=== PATIENT | female | born 1960 | race Caucasian/White ===

== ENCOUNTER → 2016-12-05 | Outpatient (CLI) | payer MEDICARE, OTHER ==
[~2016-12-05] MED LIST: ACETAMINOPHEN PO; ACTOS15 MG PO; ADVAIR 5001 DISK W/1 IH; ALBUTEROL; ALBUTEROL 0.5ML INH; ALBUTEROL MININEB NEB; ALBUTEROL17 GM; ALBUTEROL17 GM INH; ALDACTONE25 MG PO; ALENDRONATE SOD70 MG PO; AMBIEN PO; ANECREAM 4% KI1 EACH TP; ANECREAM TP; ATIVAN PO; ATIVAN0.5 M1 PO; ATIVAN0.5 MG PO; AVANDIA; AVANDIA PO; AZO CRANBERRY1 EACH PO; BACTRIM DS TABL1 TA1 PO; BACTRIM DS TABL1 TAB PO; BUMEX2 MG PO; BUSPIRONE HCL10 MG PO; CEFDINIR300 MG PO; CITRATE OF MAG296 M1; COLACE PO; COLACE50 MG PO; COMBIVENT INH14.7 GM INH; DEEP SEA SPRAY; DILAUDID; DILAUDID PAIN PUMP; DILAUDID PO; DILAUDID2 MG PO; DOXYCYCLINE150 MG PO; DULCOLAX10 MG/SUPP RC; DUONEB 2.5-0.5 M3 ML NEB; EQUATE SEVERE SINUS; FLONASE 0.05% N16 G1; FLONASE ALLERG9.9 ML; FLONASE16 GM; FLORASTOR250 M1 PO; FOLIC ACID PO; FOLIC ACID1 MG PO; FOSAMAX70 MG PO; GAS RELIEF 8080 M1 PO; HUMALOG100 U/ML; HYDROCODON-ACE1 EAC1 PO; HYDROCODON-ACE1 EAC5 PO; IPRATROPIUM; K-DUR20 ME1 PO; K-DUR20 ME2 PO; KCL PO; KEFLEX; LANTUS100 U/ML; LASIX PO; LEVOTHYROXINE50 MCG PO; LEXAPRO20 MG PO; LIDOCAINE PAD; LIPITOR20 MG PO; LISINOPRIL5 MG PO; LORTAB 2.5/5001 TAB PO; LORTAB 7.5-5001 TAB PO; MAG-OX 400400 M1 DOB; MAG-OX 400400 M1 PO; MAGNESIUM400 MG PO; MELADOX3 MG PO; METHADONE HCL10 MG PO; METOPROLOL SUCC25 MG PO; MILK OF MAGNESIA PO; MIRALAX17 GM DOB; MIRTAZAPINE7.5 MG PO; MOBIC PO; MYLANTA; MYLANTA PO; MYSOLINE50 MG PO; NEBULIZER PO; NEURONTIN300 MG PO; NILSTAT1 ML DOB; NORCO 10/3251 TAB PO; PANTOPRAZOLE SO40 MG PO; PERCOCET5/325 PO; PHENERGAN25 MG PO; POLYETHYLENE GL17 GM PO; PROTONIX; PROTONIX PO; REFRESH EYE DRO50 E1 OU; REGLAN10 MG PO; ROBAXIN PO; ROBAXIN500 MG PO; ROBITUSSIN NIG118 ML PO; ROBITUSSIN100 MG/51 PO; SENNA8.6 M2 PO; SINGULAIR PO; SPIRIVA18 MCG INH; STOOL SOFT & ST1 TAB PO; SYMBICORT INH; TOPROL XL; TOPROL XL 50 MG50 M1 PO; TOPROL XL PO; TOPROL XL50 MG PO; TYLENOL SINUS1 EAC1 PO; VIBRAMYCIN100 M1 DOB; VITAMIN B-121000 MCG PO; VITAMIN B12-FO1 EACH PO; ZAROXYLYN PO; ZEBETA5 MG PO; ZESTORETIC 10/11 TAB PO; ZITHROMAX PO; ZYRTEC10 M1 PO
--- NOTE | ~2016-12-05 | CT55 ---
[facility] A Service of [facility] & [facility] RADIOLOGY TEXT RESULTS PATIENT: JEYSON GONZÁLES LOCATION: [facility] : 56 UNIT #: [id number] AGE: [address]: Kyle Beavers MD SEX: F ORDER DR: [id number] [facility] [address] [place], [place] [address] [id number] O MR#: [id number] Acc #: [id number] NAME: JEYSON GONZÁLES. : 1960 SEX: F STUDY DATE/TIME: 12/05/2016 15:34 UNIT: [facility] ROOM: STUDY DESCRIPTION: CT Chest W Con Attending Physician: Kyle Beavers M.D. Referring Physician: Kyle Beavers M.D. Ordering Physician: Kyle Beavers M.D. Primary Care Physician: Petey Lei M.D. MEDICAL IMAGING REPORT This report is preliminary unless electronic signature is present REVISED REPORT EXAM CT scan of the chest with contrast INDICATIONS Previous left lung cancer, shortness of breath, edema due to antineoplastic chemotherapy. Routine follow up. TECHNIQUE CT scan of the chest was performed following the administration of IV contrast. Coronal and sagittal reformatted images were obtained. Please insert dose reduction statement. Comparison is made with 02/23/2015. TECHNIQUE This CT exam was performed with one or more of the following radiation dose reduction techniques: Automatically exposure control, adjustment of mA and / kV according to patient size, and iterative reconstruction. FINDINGS There is some minimal nodularity in the left upper lobe which is all decreased compared with the previous study. There is stable volume loss within the left upper lobe and stable left paramediastinal scarring. There is no suspicious pulmonary nodule or airspace consolidation. Stable mildly prominent subcarinal lymph node. No suspicious lymphadenopathy. No pleural effusion. Limited imaging of the upper abdomen is unremarkable. Bone windows demonstrate prior multilevel vertebral augmentation and postoperative change. Since the previous CT, the patient has undergone vertebral augmentation of T12. There is an age indeterminate compression deformity of T11 which is probably chronic. There is a compression deformity of T4 with some sclerosis which is age indeterminate. [facility] A Service of [facility] & [facility] RADIOLOGY TEXT RESULTS PATIENT: JEYSON GONZÁLES LOCATION: [facility] : 56 UNIT #: [id number] AGE: [address]: Kyle Beavers MD SEX: F ORDER DR: IMPRESSION 1. No airspace consolidation or suspicious pulmonary nodule. 2. Stable left paramediastinal scarring and volume loss. 3. Decreased nodularity left upper lobe. 4. Prior multilevel vertebral augmentations. Chronic-appearing compression deformity of T11. Mild compression deformity of T4 with some sclerosis age indeterminate. If patient is exhibiting any symptoms of back pain, further evaluation with MRI may be helpful. Dictated by... Chi Andres M.D. THIS IS AN ELECTRONICALLY VERIFIED REPORT Chi Andres M.D. at 01/20/2017 7:36 AM ABELARDO/janet TD: 12/07/2016 10:35 JOB #: [id number] MEDICAL IMAGING REPORT Page 1 of 1 COPY
[2016-12-05 15:36] LABS: POC - CREATININE 0.93 mg/dL (0.44-1.03); POC - GFR >60.0 mL/min (>60)
== END | disposition home or self-care (01) ==
LOC: CCAT 14:52
PROVIDERS: Internal Medicine Hematology & Oncology
DX: C34.12 Malignant neoplasm of upper lobe, left bronchus or lung (principal); R06.02 Shortness of breath; D64.81 Anemia due to antineoplastic chemotherapy; R30.0 Dysuria; G95.20 Unspecified cord compression; J98.59 Other diseases of mediastinum, not elsewhere classified; Z98.890 Other specified postprocedural states
CPT/HCPCS: 71260; 82565; Q9967

== ENCOUNTER 2016-12-17 17:15 | Emergency (ER) | payer MEDICARE, OTHER ==
[~2016-12-17] VITALS: Ht 165.1 cm; Wt 65.8 kg
--- NOTE | ~2016-12-17 | CR126 ---
[facility] A Service of [facility] & [facility] RADIOLOGY TEXT RESULTS PATIENT: JEYSON GONZÁLES LOCATION: SED : 56 UNIT #: [id number] AGE: [address]: MARC JACOBO SEX: F ORDER DR: [id number] [address] [address] [id number] E MR#: [id number] Acc #: [id number] NAME: JEYSON GONZÁLES. : 1960 SEX: F STUDY DATE/TIME: 12/17/2016 17:46 UNIT: SED ROOM: STUDY DESCRIPTION: CR Foot Complete Min 3 View Lt Attending Physician: Marc Jacobo Ordering Physician: Marc Jacobo Primary Care Physician: Petey Lei M.D. MEDICAL IMAGING REPORT This report is preliminary unless electronic signature is present. EXAM Foot, 3 view, left. HISTORY Laceration to foot today, 1 hour ago, when the O2 tank landed on top of her foot. COMMENT 3 views of the left foot are reviewed. The bones are demineralized and the patient has had previous arthrodesis across the tibiotalar joint with a joão and screws crossing from the distal tibia to the talus and calcaneus. There is a plantar calcaneal spur. I believe there is bandaging at the dorsum of the foot probably related to site of laceration, but, allowing for this, no radiopaque foreign body is seen. No acute fracture or dislocation is suspected allowing for the osteopenia. IMPRESSION 1. Bandaging at the dorsum of the foot where the laceration is located. Allowing for this, no radiopaque foreign body is seen. 2. Bones are demineralized. Allowing for this, no acute fracture or dislocation. 3. Patient has had previous ankle arthrodesis. Dictated by... Mei Castle M.D. THIS IS AN ELECTRONICALLY VERIFIED REPORT Mei Castle M.D. at 12/18/2016 10:40 AM KALEE/linwood TD: 12/18/2016 06:43 [facility] A Service of [facility] & [facility] RADIOLOGY TEXT RESULTS PATIENT: JEYSON GONZÁLES [place] [facility] 56 UNIT #: [id number] AGE: [address]: MARC JACOBO SEX: F ORDER DR: JOB #: [id number] MEDICAL IMAGING REPORT Page 1 of 1
== END 2016-12-17 19:17 | disposition home or self-care (01) ==
LOC: SED 17:15
DX: S91.312A Laceration without foreign body, left foot, initial encounter (principal); I11.0 Hypertensive heart disease with heart failure; I50.9 Heart failure, unspecified; R56.9 Unspecified convulsions; J44.9 Chronic obstructive pulmonary disease, unspecified; Q78.8 Other specified osteochondrodysplasias; J30.2 Other seasonal allergic rhinitis; E78.5 Hyperlipidemia, unspecified; Z85.118 Personal history of other malignant neoplasm of bronchus and lung; Z90.49 Acquired absence of other specified parts of digestive tract; Z90.710 Acquired absence of both cervix and uterus; Z98.890 Other specified postprocedural states; Z79.899 Other long term (current) drug therapy; Z88.0 Allergy status to penicillin; Z88.5 Allergy status to narcotic agent; Z88.8 Allergy status to other drugs, medicaments and biological substances
CPT/HCPCS: 12001; 73630; 99283